=== PATIENT | female | born 1965 | race Caucasian/White ===

== ENCOUNTER → 2016-05-20 | Outpatient (CLI) | payer OTHER ==
[~2016-05-20] MED LIST: ACYC400T PO; AMOX500T PO; BACT800T5 PO; DICY20TA10 PO; DIFL150T PO; EFFE150C PO; MOTR200T4 PO; OMEP40CA2 PO; SALI1GEL EACH NARE; VALA500T PO
[2016-05-20 10:06] LABS: AUTOMATED NEUTROPHIL # 4.6 TH/MM3 (1.8-7.7); BASOPHIL # 0.1 TH/MM3 (0-0.2); BASOPHIL % 1.2 % (0.0-2.0); EOSINOPHIL # 0.1 TH/MM3 (0-0.4); EOSINOPHIL % 1.7 % (0.0-4.0); HEMATOCRIT 40.6 % (35.0-46.0); HEMO FLAGS DIFF FINAL; LYMPH % 20.5 % (9.0-44.0); LYMPHOCYTE # 1.3 TH/MM3 (1.0-4.8); MEAN CELL VOLUME 85.9 FL (80.0-100.0); MEAN CORPUSCULAR HGB CONC 33.7 % (32.0-36.0); MONO % 6.5 % (0.0-8.0); NEUT % 70.1 % (16.0-70.0); PLATELET COUNT 252 TH/MM3 (150-450); RED BLOOD COUNT 4.73 MIL/MM3 (4.00-5.30); RED CELL DISTRIBUTION WIDTH 13.1 % (11.6-17.2); WHITE BLOOD COUNT 6.5 TH/MM3 (4.0-11.0)
[2016-05-20 10:49] LABS: ALKALINE PHOSPHATASE 99 U/L (45-117); ALT (GPT) 20 U/L (10-53); ANION GAP 9 MEQ/L (5-15); AST (GOT) 14 U/L (15-37); BICARBONATE 27.1 MEQ/L (21.0-32.0); BLOOD UREA NITROGEN 7 MG/DL (7-18); CHLORIDE 105 MEQ/L (98-107); GLOMERULAR FILTRATION RATE 75 ML/MIN (>89); GLUCOSE,FASTING 99 MG/DL (74-99); HDL CHOLESTEROL 55.5 MG/DL (40.0-60.0); LDL CHOLESTEROL 92 MG/DL (0-99); POTASSIUM 3.8 MEQ/L (3.5-5.1); SODIUM (NA) 141 MEQ/L (136-145); TOTAL BILIRUBIN ADULT 0.3 MG/DL (0.2-1.0)
== END ==
LOC: CLAB 09:38
PROVIDERS: ATTEND Family Medicine
DX: J32.9 Chronic sinusitis, unspecified (principal); K22.70 Barrett's esophagus without dysplasia; F32.9 Major depressive disorder, single episode, unspecified; E66.9 Obesity, unspecified; Z80.9 Family history of malignant neoplasm, unspecified
CPT/HCPCS: 36415; 80053; 80061; 84443; 85025

== ENCOUNTER 2016-07-29 14:26 | Emergency (ER) | payer OTHER ==
[~2016-07-29] VITALS: Ht 160 cm; Wt 97.3 kg
[~2016-07-29 14:26] MED LIST changes: -AMOX500T PO; -BACT800T5 PO; -DIFL150T PO; -MOTR200T4 PO; -SALI1GEL EACH NARE
[2016-07-29 14:43] VITALS: BP 122/81; PULSE 106; RESP 18; TEMP 98.1; O2SAT 98
[2016-07-29] MEDS ORDERED: BACT800T5 PO (15:10)
[2016-07-29] MEDS ORDERED: MOTR200T4 PO (15:10)
--- NOTE | 2016-07-29 15:11 | PD ---
HPI Chief Complaint: Headache Time Seen by Provider: 15:03 Travel History International Travel<30 days: No Contact w/Intl Traveler<30days: No Traveled to known affect area: No History of Present Illness HPI 51-year-old female with history of chronic sinusitis, presents to the ER today with nasal congestion for several days, smelled foul smelling drainage coming out of her left nostril today, is having frontal headaches and sinus pressure which she currently rates at an 8 out of 10, had small amount of left nostril bleeding today. He she denies any fevers, vomiting, or any other symptoms. She has had similar symptoms with her previous sinus infections, has been on erythromycin previously for sinus infections. She states that she had talked her primary care physician regarding these issues and had been told to use nasal saline and Vicks. She also has been using Flonase and Claritin-D for this issue. Modifying Factors: None Associated Signs & Symptoms: Sinus pressure, left nostril discharge and bleeding , headache Risk Factors: Chronic sinusitis PFSH Past Medical History Blood Disorders: No Anxiety: Yes Depression: Yes Cancer: No Cardiovascular Problems: No Chemotherapy: No Diabetes: No Diminished Hearing: No Endocrine: No Gastrointestinal Disorders: Yes (DENIS'S ESOPHAGITIS, GASTROEPARESIS) GERD: Yes Genitourinary: Yes ("BLADDER DROPPED") Immune Disorder: No Kidney Stones: No Musculoskeletal: No Neurologic: No Psychiatric: Yes (DEPRESSION) Reproductive: No Respiratory: No Radiation Therapy: No Renal Failure: No Tetanus Vaccination: < 5 Years Influenza Vaccination: Yes ?: Not Past Surgical History Cholecystectomy: Yes Other Surgery: No Social History Alcohol Use: No Tobacco Use: No Substance Use: No Allergies-Medications (Allergen,Severity, Reaction): Coded Allergies: No Known Allergies (Verified , 07/29/16) Reported Meds & Prescriptions Reported Meds & Active Scripts Active Omeprazole 40 Mg Cap 40 Mg PO DAILY Effexor XR 24 HR (Venlafaxine HCl) 150 Mg Cap 150 Mg PO DAILY Review of Systems Except as stated in HPI: all other systems reviewed are Neg Physical Exam Narrative GENERAL: Well-developed middle age white female patient who is currently not in acute distress. Awake and oriented 3. SKIN: Focused skin assessment warm/dry. HEAD: Atraumatic. Normocephalic. EYES: Pupils equal and round. No scleral icterus. No injection or drainage. ENT: Mucosa pink and moist. No erythema or exudates. No uvular edema. No uvular , palatal, or tonsillar deviation. Airway patent. Nasal turbinates appear normal without nasal blood, purulent drainage or septal hematoma. NECK: Trachea midline. No JVD. CARDIOVASCULAR: Regular rate and rhythm. No murmur appreciated. RESPIRATORY: No accessory muscle use. Clear to auscultation. Breath sounds equal bilaterally. GASTROINTESTINAL: Abdomen soft, non-tender, nondistended. Hepatic and splenic margins not palpable. MUSCULOSKELETAL: No obvious deformities. No clubbing. No cyanosis. No edema. NEUROLOGICAL: Awake and alert. No obvious cranial nerve deficits. Motor grossly within normal limits. Normal speech. PSYCHIATRIC: Appropriate mood and affect; insight and judgment normal. Data Data Last Documented VS Vital Signs Date Time Temp Pulse Resp B/P Pulse Ox O2 Delivery O2 Flow Rate FiO2 07/29/16 14:43 98.1 106 18 122/81 98 MDM Medical Decision Making Medical Screen Exam Complete: Yes Emergency Medical Condition: Yes Medical Record Reviewed: Yes Differential Diagnosis Headaches, sinus pressureURI versus sinusitis Narrative Course Symptoms are consistent with sinusitis. He denies seeing any current epistaxis. Patient has previous history of sinusitis. At this point, my plan would be to give her symptomatic relief for the sinus pressure and give her antibiotics for sinusitis considered foul-smelling discharge. I do not see any current foul-smelling discharge on evaluation. She should follow-up with primary care physician regarding this issue as well. Return for any worsening in symptoms as necessary. The plan has been discussed with her and she states understanding. Diagnosis Primary Impression: Sinusitis Med/Other Pt SpecificInfo: Prescription(s) given Scripts Sulfamethoxazole-Trimethoprim (Bactrim DS)800-160 Mg Tab1 Tab PO BID #14 TAB Ref 0 Prov:Vero Nix MD 07/29/16 Ibuprofen (Motrin Ib)200 Mg [id number] Mg PO Q6H PRN (PAIN SCALE 1 TO 10) #20 TAB Ref 0 Prov:Vero Nix MD 07/29/16 Disposition: DISCHARGE HOME Condition: Stable Vero Nix MD Jul 29, 2016 15:10
[2016-08-09] MEDS ORDERED: ACYC400T PO (11:34)
[2016-08-09] MEDS ORDERED: DIFL150T PO (11:44)
[2016-08-09] MEDS ORDERED: AMOX500T PO (11:44)
[2016-09-08] MEDS ORDERED: SALI1GEL EACH NARE (10:27)
[2016-09-08] MEDS ORDERED: DICY20TA10 PO (10:27)
[2016-09-16] MEDS ORDERED: OMEP40CA2 PO (08:09)
== END 2016-07-29 15:32 | disposition home or self-care (01) ==
LOC: PHED 14:26
DX: J01.90 Acute sinusitis, unspecified (principal); F41.8 Other specified anxiety disorders; K22.70 Barrett's esophagus without dysplasia
CPT/HCPCS: 99283

== ENCOUNTER → 2016-08-25 | Outpatient (CLI) | payer OTHER ==
[~2016-08-25] MED LIST changes: +AMOX500T PO; +DIFL150T PO; +MOTR200T4 PO; +SALI1GEL EACH NARE; -VALA500T PO
--- NOTE | 2016-08-25 15:15 | RADRPT ---
EXAM DATE/TIME: 08/25/2016 14:24 [facility] COMPARISON: No previous studies available for comparison. INDICATIONS : Vaginal bleeding post menopausal. MEDICAL HISTORY : Gastroesophageal reflux disease. Esophageal varices. Bladder drop. SURGICAL HISTORY : Cholecystectomy. ENCOUNTER: Initial ACUITY: 1 day PAIN SCORE: 0/10 LOCATION: Bilateral pelvis MEASUREMENTS: UTERUS: 8.6 x 4.0 x 3.3 cm ENDOMETRIAL STRIPE: 4 mm RIGHT OVARY: Non visualized LEFT OVARY: Non visualized FINDINGS: UTERUS: The myometrium has homogeneous echotexture without mass. MISCELLANEOUS: No free fluid. CONCLUSION: 1. Nonvisualization of the ovaries. 2. Otherwise unremarkable transabdominal pelvic sonogram. Enmanuel Ramos MD on August 25, 2016 at 15:12 Board Certified Radiologist. This report was verified electronically.
== END ==
LOC: HRAD 13:31
PROVIDERS: ATTEND Family Medicine
DX: N95.0 Postmenopausal bleeding (principal)
CPT/HCPCS: 76856

== ENCOUNTER 2017-05-13 13:01 | Emergency (ER) | payer SELFPAY ==
[~2017-05-13] VITALS: Ht 160 cm; Wt 86.6 kg
[~2017-05-13 13:01] MED LIST changes: -AMOX500T PO; -DIFL150T PO; -MOTR200T4 PO
[2017-05-13 13:12] VITALS: BP 145/59; PULSE 103; RESP 18; TEMP 98.3; O2SAT 98
[2017-05-13] MEDS ORDERED: VENL150C39 PO (13:59)
--- NOTE | 2017-05-13 13:59 | PD ---
HPI Chief Complaint: Dizziness Time Seen by Provider: 13:50 Travel History International Travel<30 days: No Contact w/Intl Traveler<30days: No Traveled to known affect area: No History of Present Illness HPI This is a 51-year-old female who presents to the emergency department with headache and some lightheadedness, constant, mostly in the temples, worsening over the past 3 days ever since she ran out of her venlafaxine. She says she is going through a divorce. She usually follows up with the [facility] urgent care but recently closed and she is switching primary care physicians. She does have a primary care physician appointment in May. She really just wants her medication refilled. She says her headaches are similar to when she' s had in the past. [facility] Past Medical History Blood Disorders: No Anxiety: Yes Depression: Yes Cancer: No Cardiovascular Problems: No Chemotherapy: No Diabetes: No Diminished Hearing: No Endocrine: No Gastrointestinal Disorders: Yes (DENIS'S ESOPHAGITIS, GASTROEPARESIS) GERD: Yes Genitourinary: Yes ("BLADDER DROPPED") Immune Disorder: No Kidney Stones: No Musculoskeletal: No Neurologic: No Psychiatric: Yes (DEPRESSION) Reproductive: No Respiratory: No Radiation Therapy: No Renal Failure: No ?: Not Past Surgical History Cholecystectomy: Yes Other Surgery: No Social History Alcohol Use: No Tobacco Use: No Substance Use: No Allergies-Medications (Allergen,Severity, Reaction): Coded Allergies: No Known Allergies (Verified Adverse Reaction, Unknown, 05/13/17) Reported Meds & Prescriptions Reported Meds & Active Scripts Active Effexor XR 24 HR (Venlafaxine HCl) 150 Mg Cap 150 Mg PO DAILY Review of Systems Except as stated in HPI: all other systems reviewed are Neg Physical Exam Narrative GENERAL:Well appearing, no acute distress SKIN: Focused skin assessment warm and dry. HEAD: Atraumatic. Normocephalic. EYES: Pupils equal and round. No injection or drainage. ENT: Moist mucous membranes NECK: Trachea midline. CARDIOVASCULAR: Regular rate and rhythm. No murmur appreciated. RESPIRATORY: Clear to auscultation. Breath sounds equal bilaterally. GASTROINTESTINAL: Abdomen soft, non-tender, nondistended. MUSCULOSKELETAL: No obvious deformities. NEUROLOGICAL: Awake and alert. No obvious cranial nerve deficits. No dysarthria or aphasia. No upper or lower extremity drift. No upper extremity ataxia. Visual rm intact. PSYCHIATRIC: Appropriate mood and affect; insight and judgment normal. Data Data Last Documented VS Vital Signs Date Time Temp Pulse Resp B/P (MAP) Pulse Ox O2 Delivery O2 Flow Rate FiO2 05/13/17 13:55 98 Room Air 05/13/17 13:12 98.3 103 18 145/59 (87) MDM Medical Decision Making Medical Screen Exam Complete: Yes Emergency Medical Condition: Yes Differential Diagnosis Tension headache, migraine headache, subarachnoid hemorrhage, medication withdrawal Narrative Course This is a 51-year-old female who presents to the emergency department reporting headaches and some dizziness having been off of her venlafaxine for 4 days. Patient has normal neurologic exam. Patient will be prescribed a refill of her venlafaxine and says she has appointment with [facility] later in the month. Diagnosis Primary Impression: Medication refill Patient Instructions: General Instructions Additional Instructions: If you develop severe worsening headache, persistent vomiting, numbness, weakness, difficulty walking or difficulty talking return to the emergency department immediately. Sometimes in the emergency department we did not identify the cause of headaches. If you continued to have headaches it is very important that you followup with your primary care physician as you may need further testing with an MRI. Med/Other Pt SpecificInfo: Prescription(s) given Scripts Venlafaxine ER 24 HR (Venlafaxine ER 24 HR) 150 Mg Cap 150 MG PO DAILY, #30 CAP 0 Refills Prov: Jennifer Chaves MD 05/13/17 Disposition: 01 DISCHARGE HOME Condition: Stable Jennifer Chaves MD May 13, 2017 13:59
[2017-05-13 14:00] VITALS: BP 136/82; PULSE 88; RESP 20; O2SAT 99
== END 2017-05-13 14:07 | disposition home or self-care (01) ==
LOC: PHED 13:01
DX: Z76.0 Encounter for issue of repeat prescription (principal); F41.9 Anxiety disorder, unspecified; F32.9 Major depressive disorder, single episode, unspecified; K21.9 Gastro-esophageal reflux disease without esophagitis; Z79.899 Other long term (current) drug therapy
CPT/HCPCS: 99281